=== PATIENT | female | born 2000 | race Caucasian/White ===

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

== ENCOUNTER → 2019-01-27 | Outpatient (CLI) | payer OTHER ==
[~2019-01-27] MED LIST: AMOX500C PO; IBUP-1114 PO; MAPA500T2 PO; PRENTAB9 PO; REGL10TA6 PO
[2019-01-27 17:41] LABS: BASO # 0.1 10^3/uL (0.0-0.2); BASO % 0.3 % (0.0-1.0); EOS # 0.3 10^3/uL (0.0-0.50); EOS % 1.7 % (0.0-3.0); HEMATOCRIT 35.4 % (36.0-47.0); HEMOGLOBIN 11.6 g/dl (12.0-15.5); LYMPH # 2.7 10^3/uL (1.5-6.5); LYMPH % 15.4 % (24.0-44.0); MEAN CORPUSCULAR HEMOGLOBIN 29.7 pg (27.0-33.0); MEAN CORPUSCULAR HGB CONC 32.8 g/dl (32.0-36.5); MEAN CORPUSCULAR VOLUME 90.8 fl (80.0-96.0); MONO # 0.8 10^3/uL (0.0-0.8); MONO % 4.3 % (0.0-5.0); NEUTROPHILS # 13.4 10^3/uL (1.8-7.7); NEUTROPHILS % 76.5 % (36.0-66.0); PLATELET COUNT, AUTOMATED 349 10^3/uL (150-450); WHITE BLOOD COUNT 17.5 10^3/uL (4.0-10.0)
[2019-01-27 18:32] LABS: CHLAMYDIA DNA AMPLIFICATION NEGATIVE (NEGATIVE); GC DNA AMPLIFICATION NEGATIVE (NEGATIVE)
[2019-01-29 11:01] LABS: HIV 1&2 SCREEN CENTAUR NEGATIVE (NEGATIVE); RUBELLA IgG QUALITATIVE IMMUNE (IMMUNE)
== END ==
LOC: M SMT 15:29
PROVIDERS: ATTEND Advanced Practice Midwife
DX: Z34.81 Encounter for supervision of other normal pregnancy, first trimester (principal); Z3A.00 Weeks of gestation of pregnancy not specified

== ENCOUNTER → 2019-02-03 | Outpatient (CLI) | payer OTHER ==
--- NOTE | 2019-02-04 02:35 | REP ---
OBSTETRIC SONOGRAPHY: History: Supervision of for anatomy. Findings: Scanning through the gravid uterus demonstrate a viable single intrauterine gestation in a transverse, head to the maternal right lie. motion is observed, and heart rate is recorded at 139 beats per minute. A posterior, grade 0 placenta is seen without evidence of previa or abruption. Amniotic fluid is subjectively normal. Closed cervical length is measured at 3.0 cm transabdominally. No extrauterine abnormality is observed. No anomaly is seen. The following anatomic structures are identified and felt to be sonographically unremarkable: cranium, choroid plexus, cavum, cerebellum and posterior fossa, face and profile, lungs, four-chamber heart with left and right ventricular outflow tract views, diaphragm, left-sided stomach, abdominal wall cord insertion, three-vessel umbilical cord, kidneys and bladder, spine, upper and lower extremities. Biometry chart: BPD 6.5 cm = 26 weeks 1 day Head circumference 24.2 cm = 26 weeks 2 days Abdominal circumference 24.1 cm = 28 weeks 3 days Femur length 5.0 cm = 26 weeks 5 days Humeral length 4.5 cm = 26 weeks 4 days HC/AC ratio normal, 1.00. Cephalic index normal, 0.74. Estimated weight 1081 grams, 2 pounds 6 ounces, 60th percentile for 26 weeks 6 days. IMPRESSION: Viable single intrauterine gestation at 26 weeks 6 days by today's composite sonographic criteria. DASIA by today's sonography 05/06/2019. anatomic survey is felt to be complete. Transverse lie. Electronically Signed by Leonid Gonzalez MD 02/04/2019 02:31 P
== END ==
LOC: M RAD 13:32
PROVIDERS: ATTEND Advanced Practice Midwife
DX: O32.2XX0 Maternal care for transverse and oblique lie, not applicable or unspecified (principal); Z36.89 Encounter for other specified antenatal screening; Z3A.26 26 weeks gestation of pregnancy

== ENCOUNTER 2019-04-13 09:34 | Inpatient (IN) | payer OTHER ==
[~2019-04-13] VITALS: Ht 157.5 cm; Wt 59.9 kg
[2019-04-13] VITALS (34 sets, daily range): BP systolic 75–134; BP diastolic 41–79
[2019-04-13] MEDS ORDERED: LR 1,000 ML IV SCH (10:50)
[2019-04-13] MEDS ORDERED: LACTATED RINGER'S 1000 ML IV STA (10:50)
[2019-04-13] MEDS ORDERED: PENICILLIN G POTASSIUM IV 5 MU in D5W MINI-BAG PLUS 100 ML IV STA (10:50)
[2019-04-13] MEDS ORDERED: FENTANYL 2MCG/ML ROPIVACAINE 0.2% IN 0.9% NACL 100ML IVBAG As Ordered ONE (11:22)
[2019-04-13 11:30] LABS: HEMATOCRIT 33.9 % (36.0-47.0); HEMOGLOBIN 11.2 g/dl (12.0-15.5); MEAN CORPUSCULAR HEMOGLOBIN 28.4 pg (27.0-33.0); MEAN CORPUSCULAR VOLUME 85.8 fl (80.0-96.0); PLATELET COUNT, AUTOMATED 275 10^3/uL (150-450); RED BLOOD COUNT 3.95 10^6/uL (4.00-5.40); WHITE BLOOD COUNT 12.5 10^3/uL (4.0-10.0)
[2019-04-13 11:55] LABS: AMPHETAMINES URINE REFLEX NEGATIVE (NEGATIVE); BARBITURATES URINE REFLEX NEGATIVE (NEGATIVE); BENZODIAZEPINES URINE REFLEX NEGATIVE (NEGATIVE); COCAINE METABOLITE URINE REFLE NEGATIVE (NEGATIVE); METHADONE URINE REFLEX NEGATIVE (NEGATIVE); OPIATES URINE REFLEX NEGATIVE (NEGATIVE); PHENCYCLIDINE URINE REFLEX NEGATIVE (NEGATIVE)
[2019-04-13 12:10] LABS: CANNABINOIDS URINE REFLEX PENDING CONFIRMATION (NEGATIVE)
[2019-04-13] MEDS ORDERED: ePHEDrine SULFATE 25 MG/5 ML(5MG/ML) SYRINGE As Ordered ONE (12:23)
[2019-04-13] MEDS: ePHEDrine SULFATE 25 MG/5 ML(5MG/ML) SYRINGE IV PRN ×2 (12:28→12:46)
[2019-04-13] MEDS ORDERED: LACTATED RINGER'S 1000 ML IV PRN (12:30)
[2019-04-13] MEDS ORDERED: ONDANSETRON 4MG/2ML VIAL (J2405) IV PRN ×2 (12:30→20:45)
[2019-04-13] MEDS ORDERED: EPIDURAL/PCA KEYS XX PRN (12:30)
[2019-04-13] MEDS ORDERED: FENTANYL/ROPIVACAINE/NACL BAG 100 ML EPIDURAL SCH (12:30)
[2019-04-13] MEDS ORDERED: NALOXONE INJ 0.4 MG/1 ML VIAL (J2310) IV PRN (12:30)
[2019-04-13] MEDS ORDERED: diphenhydrAMINE INJ 50MG/ML VIAL (J1200) IV PRN (12:30)
[2019-04-13] MEDS ORDERED: REFRIGERATOR IV KEYS XX PRN (12:30)
[2019-04-13] MEDS ORDERED: EPIDURAL COMMENT XX SCH (12:30)
--- NOTE | 2019-04-13 12:45 | HPE ---
DATE OF ADMISSION: 04/13/2019 18-year-old, 2, para 1 female at 36 and 6/7 weeks gestation by 26 week ultrasound, estimated date of confinement (EDC) of 05/06/2019, who presents with contractions every 2 to 3 minutes for the last several hours. Contractions increasing in intensity. She denies loss of fluid or vaginal bleeding. COURSE: The patient did not initiate care until 21 weeks gestation on 01/27/2019. Her blood pressure at that time was 110/72. She had only three visits. OBSTETRICAL HISTORY: May 2018, 39 weeks vaginal delivery, 5 pound 12 ounce female infant, no complications. PAST MEDICAL HISTORY: None. SURGICAL HISTORY: None. ALLERGIES: None. SOCIAL HISTORY: Father of the baby is involved with the patient. Denies cigarettes, alcohol or drug use. FAMILY HISTORY: Noncontributory. PHYSICAL EXAMINATION: Blood pressure 134/74, pulse 84. She appears uncomfortable. Head and neck examination normal. Lungs are clear. Heart regular rate and rhythm. Abdomen is nontender, gravid. heart tones category 1. Sterile vaginal exam: 4 to 5 cm, 100%, -2, posterior, soft, vertex. Contractions every 2 to 3 minutes. Extremities: Nontender. LABORATORIES: Blood type A positive, Rubella immune, RPR nonreactive. Group B streptococcus (GBS) unknown. ASSESSMENT: 18-year-old 2, para 1 female at 36 and 6/7 weeks gestation, presents in active labor. PLAN: The patient was admitted on 04/13/2019. We will start penicillin for GBS unknown status.
[2019-04-13] MEDS ORDERED: PENICILLIN G POTASSIUM IV 2.5 MU in APPROPRIATE DILUENT 1 EA IV SCH (15:00)
[2019-04-13] MEDS ORDERED: OXYTOCIN 30 UNITS IN 0.9% NaCl 500ML IV BAG (J2590) As Ordered ONE (16:01)
[2019-04-13] MEDS ORDERED: MEASLES,MUMPS,RUBELLA VACCINE INJ (MMR-II) (90707) SC SCH (20:45)
[2019-04-13] MEDS ORDERED: DIBUCAINE 1% OINTMENT 30GM TOP PRN (20:45)
[2019-04-13] MEDS ORDERED: METHYLERGONOVINE MALEATE 0.2 MG TAB PO PRN (20:45)
[2019-04-13] MEDS ORDERED: DOCUSATE SODIUM 100 MG CAP PO PRN (20:45)
[2019-04-13] MEDS ORDERED: IBUPROFEN 600 MG TAB PO PRN (20:45)
[2019-04-13] MEDS ORDERED: ACETAMINOPHEN 500 MG TAB PO PRN (20:45)
[2019-04-13] MEDS ORDERED: IBUPROFEN 800 MG TAB PO PRN (20:45)
[2019-04-13] MEDS ORDERED: OXYTOCIN DRIP 30 UNITS in APPROPRIATE DILUENT 1 EA IV ONE (20:45)
[2019-04-13] MEDS ORDERED: RHOGAM 300 MCG (1500 IU) INJ (J2790) IM SCH (20:45)
[2019-04-13] MEDS ORDERED: ACETAMINOPHEN TAB 650MG DOSE (2X325MG) PO PRN (20:45)
[2019-04-14 06:08] VITALS: BP 95/47
[2019-04-14] MEDS: PRENATAL VITAMINS CHEWABLE TABLET PO SCH (07:42)
--- NOTE | 2019-04-14 09:06 | DN ---
DATE OF DELIVERY: 04/13/2019 PREDELIVERY DIAGNOSIS: 36 and 6/7 week gestation labor. POST DELIVERY DIAGNOSIS: Delivered. PROCEDURE: Spontaneous vaginal delivery. ANALOG DEVICE DESIGNER: Ludin Fair M.D. ANESTHESIA: Epidural. ESTIMATED BLOOD LOSS: 300 mL. FINDINGS: 6 pound, 7 ounce female . scores 9 and 9. DELIVERY SUMMARY: After a 4 minute short second stage, the patient had spontaneous delivery of a 6 pound 7 ounce female infant scores 9 and 9 under epidural anesthesia. There is no nuchal cord. The shoulders delivered spontaneously with ease. The was handed to the mother. The cord is doubly clamped and cut. The placenta delivered spontaneously and appeared to be intact. The patient received IV pitocin immediately after delivery of the placenta. There were no vaginal lacerations present. Sponges counts were correct.
[2019-04-14 18:06] VITALS: BP 112/74
[2019-04-15 05:37] VITALS: BP 106/62
[2019-04-15] MEDS: PRENATAL VITAMINS CHEWABLE TABLET PO SCH (08:10)
[2019-04-19 11:21] LABS: Cannabinoid Positive (.); GC Carboxy THC 141 ng/mL (Cutoff=10)
== END 2019-04-15 12:10 | disposition home or self-care (01) | DRG 560 ==
LOC: M LDO 09:34 → M LDI 10:26 → M OBS 20:27
PROVIDERS: ADMIT Specialist; ATTEND Specialist
PROC: 10E0XZZ Delivery of Products of Conception, External Approach (ICD-10-PCS; principal; 2019-04-13)
DX: O60.14X0 Preterm labor third trimester with preterm delivery third trimester, not applicable or unspecified (principal); O09.31 Supervision of pregnancy with insufficient antenatal care, first trimester; Z37.0 Single live birth; Z3A.36 36 weeks gestation of pregnancy

== ENCOUNTER → 2019-10-04 | Outpatient (REF) | payer OTHER ==
[2019-10-04 12:40] LABS: APPEARANCE, URINE CLEAR (CLEAR); BACTERIA, URINE AUTO 1+ (NEGATIVE); BILIRUBIN, URINE AUTO NEGATIVE (NEGATIVE); BLOOD, URINE BLOOD 3+ (NEGATIVE); COLOR, URINE STRAW (YELLOW); GLUCOSE, URINE (UA) AUTO NEGATIVE (NEGATIVE); KETONE, URINE AUTO NEGATIVE (NEGATIVE); LEUKOCYTE ESTERASE, URINE AUTO NEGATIVE (NEGATIVE); MUCUS, URINE SMALL (NEGATIVE); NITRITE, URINE AUTO NEGATIVE (NEGATIVE); PROTEIN, URINE AUTO NEGATIVE (NEGATIVE); RBC, URINE AUTO 0 /HPF (0-3); SPECIFIC GRAVITY URINE AUTO 1.004 (1.002-1.035); SQUAMOUS EPITHELIAL CELL UR AU 0 /HPF (0-6); UROBILINOGEN, URINE AUTO 0.2 mg/dL (0.0-2.0); WBC, URINE AUTO 0 /HPF (0-3)
== END ==
LOC: M LAB REF 11:58
PROVIDERS: ATTEND Physician Assistant Medical
DX: N39.0 Urinary tract infection, site not specified (principal)

== ENCOUNTER 2019-10-28 19:20 | Emergency (ER) | payer OTHER ==
[~2019-10-28] VITALS: Ht 157.5 cm; Wt 47.3 kg
[2019-10-28 19:23] VITALS: BP 119/66
[2019-10-28] MEDS ORDERED: KETOROLAC 60 MG/2 ML VIAL (J1885) IM ONE (20:30)
== END 2019-10-28 20:50 | disposition left against medical advice (07) ==
LOC: M ED 19:20
DX: S09.93XA Unspecified injury of face, initial encounter (principal); Y04.8XXA Assault by other bodily force, initial encounter; Y07.03 Male partner, perpetrator of maltreatment and neglect; Y92.009 Unspecified place in unspecified non-institutional (private) residence as the place of occurrence of the external cause; Y93.89 Activity, other specified; Y99.8 Other external cause status; F17.200 Nicotine dependence, unspecified, uncomplicated

== ENCOUNTER → 2025-04-11 | Outpatient (RCR) | LOC: M EMPSKH 03-13 06:30 | PROVIDERS: ATTEND Family Medicine | DX: Z20.828 Contact with and (suspected) exposure to other viral communicable diseases (principal) ==